=== PATIENT | male | born 1960 | race Caucasian/White ===

== ENCOUNTER 2024-04-19 06:00 | Emergency (ER) | payer SELFPAY ==
[2024-04-19] VITALS (29 sets, daily range): BP systolic 92–174; BP diastolic 60–112
[2024-04-19 06:26] LABS: BASO% 0.7 % (0-3); EOS% 0.3 % (0-8); HEMATOCRIT 42.8 % (39.0-50.0); IMMATURE GRANULOCYTES 0.6 % (0.0-5.0); MEAN CELL VOLUME 112.9 fL CALC (80.0-100.0); MEAN CORPUSCULAR HGB 36.9 pG CALC (26.0-32.0); MEAN CORPUSCULAR HGB CONC 32.7 g/dL CAL (32.0-36.0); MONO% 6.4 % (2-13); NEUT# 8.44 thou/uL (1.82-7.42); RED BLOOD COUNT 3.79 mill/uL (4.70-6.10)
[2024-04-19] MEDS ORDERED: SODIUM CHLORIDE 0.9% 1,000 ML IV ONE ×3 (06:35→07:40)
[2024-04-19] MEDS ORDERED: cefTRIAXone SODIUM 2 GM in SODIUM CHLORIDE 0.9% 100 ML IV ONE (06:35)
[2024-04-19] MEDS ORDERED: IPRATROPIUM-Albuterol 0.5MG-2.5MG/3 ML NEB ONE (06:35)
[2024-04-19] MEDS ORDERED: PROPOFOL 0 ML IV ONE (07:02)
[2024-04-19] MEDS ORDERED: PROPOFOL 100 ML IV ONE ×3 (07:10→10:18)
[2024-04-19] MEDS ORDERED: ETOMIDATE 20 MG/10 ML SDV IV ONE (07:10)
[2024-04-19] MEDS ORDERED: ROCURONIUM BROMIDE 10 MG/ML 5ML VIAL IV ONE (07:10)
[2024-04-19 07:19] LABS: ALBUMIN 4.4 g/dL (3.2-5.0); ALKALINE PHOSPHATASE 72 u/l (38-126); ANION GAP 19 (6-22 (CALC)); BUN 12 mg/dL (8-23); BUN/CREATININE RATIO 8 (12-20 (CALC)); CARBON DIOXIDE 25 mmol/l (22-30); CHLORIDE 99 mmol/l (95-108); CREATININE 1.5 mg/dL (0.7-1.3); ESTIMATED GFR 52 ML/MIN (>=90 (CALC)); ETHYL ALCOHOL 0 mg/dl (0-30); MAGNESIUM 1.4 mg/dL (1.6-2.3); POTASSIUM 4.1 mmol/l (3.5-5.1); SGOT/AST 300 u/l (19-48); SODIUM 139 mmol/l (137-146); TOTAL CHOLESTEROL 212 mg/dl (0-199); TOTAL PROTEIN 7.2 g/dL (6.3-8.2); TOTAL TRIGLYCERIDES 290 mg/dl (0-149); VLDL CHOLESTROL 58 mg/dl (4-45 (CALC))
[2024-04-19 07:28] LABS: CHOLESTEROL HDL RATIO 1.2 (<4.4 (CALC)); HDL CHOLESTEROL 171 mg/dL (39.0-59.0)
[2024-04-19 07:31] LABS: PROTHROMBIN TIME 10.3 SECONDS (9.0-12.5)
[2024-04-19] MEDS ORDERED: PIPERACILLIN Sodium-Tazobactam 3.375 GM in SODIUM CHLORIDE 0.9% 100 ML IV ONE (07:35)
[2024-04-19] MEDS ORDERED: VANCOMYCIN HCL 1 GM in SODIUM CHLORIDE 0.9% 250 ML IV ONE (07:35)
[2024-04-19] MEDS ORDERED: Pantoprazole Sodium 40 MG VIAL (Protonix) IV ONE (07:40)
[2024-04-19] MEDS ORDERED: Heparin SODIUM (Porcine) 500 ML IV ONE (07:40)
[2024-04-19] MEDS ORDERED: ASPIRIN 300 MG/SUP PR ONE (07:40)
[2024-04-19] MEDS ORDERED: SODIUM CHLORIDE 0.9% 250 ML IV ONE (07:40)
[2024-04-19] MEDS ORDERED: Heparin SODIUM (Porcine) 5,000 UNITS/ML SDV IV ONE (07:40)
[2024-04-19 08:04] LABS: URINE BILIRUBIN - DIPSTICK Negative (NEGATIVE); URINE BLOOD DIPSTICK Negative (NEGATIVE); URINE GLUCOSE - DIPSTICK Negative (NEGATIVE); URINE KETONE Negative (NEGATIVE); URINE LEUK ESTERASE Negative (NEGATIVE); URINE NITRITE - DIPSTICK Negative (Negative); URINE PH 5.5 (4.5-8.0); URINE PROTEIN - DIPSTICK 100 mg/dL (NEG-TRACE); URINE UROBILINOGEN - DIPSTICK 0.2 E.U./dL (0.2)
[2024-04-19 08:11] LABS: URINE COLOR Yellow
[2024-04-19 08:15] LABS: URINE RBC 0-2 RBC/hpf (0-5); URINE WBC 0-2 WBC/hpf (0-5)
[2024-04-19 08:17] LABS: URINE EPITHELIAL CELLS FEW EPI/hpf (0-FEW)
[2024-04-19 08:19] LABS: URINE HYALINE CAST FEW lpf (NONE-RARE)
[2024-04-19] MEDS ORDERED: ACETAMINOPHEN 650 MG SUP PR ONE (08:40)
--- NOTE | 2024-04-19 08:55 | NUR ---
ET TUBE ADVANCED 2CM PER . ET TUEBE NOW AT THE 26CM MARKING AT THE LIP.
[2024-04-19] MEDS ORDERED: LAMICTAL100 M1 PO (08:59)
[2024-04-19] MEDS ORDERED: KEPPRA1000 MG PO (08:59)
[2024-04-19] MEDS ORDERED: SODIUM CHLORIDE 0.9% 250 ML IV PRN (09:05)
[2024-04-19] MEDS ORDERED: NOREPINEPHRINE BITARTRATE 4 MG in DEXTROSE 5% 250 ML IV ONE (09:05)
[2024-04-19] MEDS ORDERED: LORazepam 40 MG in SODIUM CHLORIDE 180 ML IV ONE (09:05)
[2024-04-19] MEDS ORDERED: MAGNESIUM SULFATE HEPTAHYDRATE 50 ML IV ONE (09:25)
== END 2024-04-19 10:49 | disposition short-term general hospital (02) | DRG 64 ==
LOC: ED 06:00
PROVIDERS: Internal Medicine
PROC: 0BH17EZ Insertion of Endotracheal Airway into Trachea, Via Natural or Artificial Opening (ICD-10-PCS; principal; 2024-04-19)
PROC: 5A1935Z Respiratory Ventilation, Less than 24 Consecutive Hours (ICD-10-PCS; 2024-04-19)
PROC: 02HV33Z Insertion of Infusion Device into Superior Vena Cava, Percutaneous Approach (ICD-10-PCS; 2024-04-19)
PROC: 0T9B70Z Drainage of Bladder with Drainage Device, Via Natural or Artificial Opening (ICD-10-PCS; 2024-04-19)
DX: I63.9 Cerebral infarction, unspecified (principal); R29.713 NIHSS score 13; I21.4 Non-ST elevation (NSTEMI) myocardial infarction; J18.9 Pneumonia, unspecified organism; J96.00 Acute respiratory failure, unspecified whether with hypoxia or hypercapnia; E87.29 Other acidosis; G81.93 Hemiplegia, unspecified affecting right nondominant side; E83.42 Hypomagnesemia; G40.909 Epilepsy, unspecified, not intractable, without status epilepticus; T42.6X6A Underdosing of other antiepileptic and sedative-hypnotic drugs, initial encounter; Z91.128 Patient's intentional underdosing of medication regimen for other reason
CPT/HCPCS: J0696; J1644; J1953; J2060; J2470; J2543; J3475; Q9967

== ENCOUNTER 2024-07-26 13:13 | Observation (INO) | payer SELFPAY ==
[~2024-07-26] VITALS: Ht 198.1 cm; Wt 102.0 kg
[2024-07-26] VITALS (18 sets, daily range): BP systolic 52–147; BP diastolic 26–105
[~2024-07-26 13:13] MED LIST: KEPPRA1000 MG PO; LAMICTAL100 M1 PO
[2024-07-26 13:45] LABS: BASO% 1.5 % (0-3); EOS% 0.4 % (0-8); HEMATOCRIT 40.1 % (39.0-50.0); HEMOGLOBIN 13.6 g/dl (14.0-18.0); IMMATURE GRANULOCYTES 0.6 % (0.0-5.0); LYMPH% 20.1 % (15-41); MEAN CELL VOLUME 109.9 fL CALC (80.0-100.0); MEAN CORPUSCULAR HGB 37.3 pG CALC (26.0-32.0); MEAN CORPUSCULAR HGB CONC 33.9 g/dL CAL (32.0-36.0); MONO% 10.7 % (2-13); NEUT# 3.55 thou/uL (1.82-7.42); NEUT% 66.7 % (42-76); RED BLOOD COUNT 3.65 mill/uL (4.70-6.10); RED CELL DISTRI WIDTH 12.3 % (11.5-15.5)
[2024-07-26 13:59] LABS: ALBUMIN 3.9 g/dL (3.2-5.0); ALKALINE PHOSPHATASE 59 u/l (38-126); ANION GAP 16 (6-22 (CALC)); BILIRUBIN, TOTAL 0.7 mg/dL (0.2-1.3); BUN 13 mg/dL (9-20); BUN/CREATININE RATIO 11 (12-20 (CALC)); CARBON DIOXIDE 22 mmol/l (22-30); CHLORIDE 103 mmol/l (95-108); CREATININE 1.1 mg/dL (0.7-1.3); ESTIMATED GFR 77 ML/MIN (>=90 (CALC)); POTASSIUM 4.3 mmol/l (3.5-5.1); SGOT/AST 225 u/l (17-59); SODIUM 137 mmol/l (137-146); TOTAL CHOLESTEROL 169 mg/dl (0-199); TOTAL PROTEIN 6.5 g/dL (6.3-8.2); TOTAL TRIGLYCERIDES 101 mg/dl (0-149); VLDL CHOLESTROL 20 mg/dl (4-45 (CALC))
[2024-07-26 14:00] LABS: PROTHROMBIN TIME 10.6 SECONDS (9.0-12.5)
[2024-07-26 14:07] LABS: CALCULATED LDLCHOLESTEROL 37 mg/dL (62-129 (CALC)); CHOLESTEROL HDL RATIO 1.5 (<4.4 (CALC)); HDL CHOLESTEROL 112 mg/dL (39.0-59.0)
[2024-07-26] MEDS ORDERED: MORPHINE SULFATE 4 MG/ML VIAL IV ONE (14:25)
[2024-07-26] MEDS ORDERED: CEFEPIME HYDROCHLORIDE 1 GM in SODIUM CHLORIDE 0.9% 50 ML IV ONE (14:25)
[2024-07-26] MEDS ORDERED: ACETAMINOPHEN 325 MG/TAB PO PRN (16:15)
[2024-07-26] MEDS ORDERED: DEXTROSE 250 ML IV PRN (16:15)
[2024-07-26] MEDS ORDERED: SODIUM CHLORIDE 0.9% 1,000 ML IV PRN (16:15)
[2024-07-26] MEDS ORDERED: MAGNESIUM HYDROXIDE 30 ML UDC PO PRN (16:15)
[2024-07-26] MEDS ORDERED: ENOXAPARIN SODIUM 40 MG/0.4 ML SYR SC SCH (21:00)
[2024-07-27 04:10] VITALS: BP 124/92
[2024-07-27 06:39] LABS: BASO% 1.7 % (0-3); EOS% 1.2 % (0-8); HEMATOCRIT 38.7 % (39.0-50.0); IMMATURE GRANULOCYTES 0.3 % (0.0-5.0); LYMPH% 45.1 % (15-41); MEAN CELL VOLUME 114.2 fL CALC (80.0-100.0); MEAN CORPUSCULAR HGB 38.3 pG CALC (26.0-32.0); MEAN CORPUSCULAR HGB CONC 33.6 g/dL CAL (32.0-36.0); MONO% 14.5 % (2-13); NEUT# 1.29 thou/uL (1.82-7.42); NEUT% 37.2 % (42-76); RED BLOOD COUNT 3.39 mill/uL (4.70-6.10); RED CELL DISTRI WIDTH 12.2 % (11.5-15.5)
[2024-07-27 06:48] LABS: ALBUMIN 3.4 g/dL (3.2-5.0); BILIRUBIN, TOTAL 1.4 mg/dL (0.2-1.3); CREATININE 0.9 mg/dL (0.7-1.3); MAGNESIUM 1.7 mg/dL (1.6-2.3); TOTAL PROTEIN 5.8 g/dL (6.3-8.2)
[2024-07-27 06:58] VITALS: BP 132/86
[2024-07-27 10:30] VITALS: BP 137/83
[2024-07-27 14:41] VITALS: BP 123/79
[2024-07-27] MEDS ORDERED: KEPPRA1000 MG PO (16:33)
== END 2024-07-27 17:05 | disposition home or self-care (01) | DRG 101 ==
LOC: ED 13:13 → EDBD 13:13 → ED 15:20 → MS2 16:40 → ED-I 17:00 → MS2 07-27 17:05
PROVIDERS: Nurse Practitioner; Nurse Practitioner Family; ADMIT Internal Medicine; ATTEND Internal Medicine
DX: G40.909 Epilepsy, unspecified, not intractable, without status epilepticus (principal); G93.89 Other specified disorders of brain; T42.76XA Underdosing of unspecified antiepileptic and sedative-hypnotic drugs, initial encounter; Z91.128 Patient's intentional underdosing of medication regimen for other reason; Z87.820 Personal history of traumatic brain injury
CPT/HCPCS: G0378; J1650; J1953; Q9967